=== PATIENT | female | born 1960 | race Caucasian/White ===

== ENCOUNTER 2022-06-03 12:13 | Emergency (ER) | payer MEDICARE ==
[2022-06-03 12:35] LABS: BASO # 0.1 10*3/uL (0.0-0.1); BASO % 0.4 % (0.0-1.0); EOS # 0.1 10*3/uL (0.0-0.4); EOS % 0.5 % (1.0-4.0); HEMATOCRIT 42.6 % (37.0-47.0); LYMPH # 1.7 10*3/uL (1.3-4.4); LYMPH % 15.4 % (27.0-41.0); MEAN CORPUSCULAR HGB 25.9 pg (27.0-31.0); MEAN CORPUSCULAR HGB CONC 31.9 g/dl (33.0-37.0); MEAN PLATELET VOLUME 8.5 fl (9.6-12.3); MONO # 0.5 10*3/uL (0.1-1.0); MONO % 4.4 % (3.0-9.0); NEUT # 8.8 10*3/uL (2.3-7.9); PLATELET COUNT AUTOMATED 471 10*3/uL (130-400); RED BLOOD COUNT 5.26 10*6/uL (4.10-5.10); RED CELL DISTRI WIDTH 16.2 % (0-14.5); WHITE BLOOD COUNT 11.1 10*3/uL (4.8-10.8)
[2022-06-03 12:43] LABS: BILIRUBIN Negative (Negative); BLOOD Negative (Negative); CLARITY Clear (Clear); COLOR Yellow (Yellow); GLUCOSE Negative (Negative); KETONE Negative (Negative); LEUKO ESTERASE Negative (Negative); NITRITE Negative (Negative); UROBILINOGEN 0.2 E.U./dl (0.0-1.0)
[2022-06-03 12:51] LABS: URINE AMPHETAMINES < 1000 (1000ng/ml); URINE BARBITURATES < 200 (200ng/ml); URINE BENZODIAZEPINES < 200 (200ng/ml); URINE CANNABINOIDS (THC) < 50 (50ng/ml); URINE COCAINE < 300 (300ng/ml); URINE METHADONE < 300 (300ng/ml); URINE OPIATES < 300 (300ng/ml)
[2022-06-03 12:52] LABS: BUN 11 mg/dl (7-24); CHLORIDE 110 mmol/L (98-107); CPK 70 U/L (26-192); CREATININE 0.95 mg/dL (0.55-1.02); LIPASE 123 U/L (73-393); POTASSIUM 3.2 mmol/L (3.5-5.1); SGOT/AST 9 IU/L (3-35); SGPT/ALT 11 U/L (12-78); SODIUM 137 mmol/L (136-145); TOTAL PROTEIN 8.2 gm/dL (6.4-8.2)
[2022-06-03 12:53] LABS: ALKALINE PHOSPHATASE 141 U/L (45-117); URINE PHENCYCLIDINE < 25 (25ng/ml)
[2022-06-03 12:55] LABS: ACT PARTIAL THROMBO TIME 27.5 SECONDS (20.0-32.1)
[2022-06-03 12:58] LABS: BACTERIA TRACE; RBC 0-2 rbc/hpf (0-2)
[2022-06-03 13:31] LABS: ETHYL ALCOHOL < 3.0 mg/dl (<3)
[2022-06-03 13:43] LABS: ACETAMINOPHEN (TYLENOL) < 5.0 ug/ml (10-30)
== END 2022-06-03 16:11 | disposition admitted as inpatient to this hospital (09) ==
LOC: ED 12:13
PROVIDERS: Emergency Medicine
DX: F29 Unspecified psychosis not due to a substance or known physiological condition (principal); Z20.822 Contact with and (suspected) exposure to COVID-19; F17.200 Nicotine dependence, unspecified, uncomplicated

== ENCOUNTER 2022-06-03 14:45 | Inpatient (IN) | payer MEDICARE ==
[~2022-06-03] VITALS: Ht 154.9 cm; Wt 65.3 kg
[2022-06-03 15:44] VITALS: BP 155/60
[2022-06-03 20:00] VITALS: BP 151/65
[2022-06-04 07:26] VITALS: BP 144/63
[2022-06-04 20:00] VITALS: BP 155/62
[2022-06-05 08:17] VITALS: BP 168/72
[2022-06-05 20:00] VITALS: BP 183/71
[2022-06-06 07:31] VITALS: BP 151/65
[2022-06-06 20:00] VITALS: BP 115/64
[2022-06-07 07:20] VITALS: BP 104/43
[2022-06-07 19:33] VITALS: BP 122/80
[2022-06-08 07:00] VITALS: BP 130/60
[2022-06-08 19:37] VITALS: BP 150/52
[2022-06-08 20:20] VITALS: BP 154/82
[2022-06-09 08:00] VITALS: BP 149/76
[2022-06-09 19:55] VITALS: BP 149/76
[2022-06-10 07:05] VITALS: BP 143/64
[2022-06-10 19:05] VITALS: BP 130/57
[2022-06-11 08:00] VITALS: BP 110/60
[2022-06-11 20:00] VITALS: BP 140/61
[2022-06-12 07:37] VITALS: BP 130/60
[2022-06-12 20:00] VITALS: BP 129/63
[2022-06-13 08:00] VITALS: BP 134/52
[2022-06-13] MEDS ORDERED: PERSERIS SQ (09:54)
== END 2022-06-13 10:47 | DRG 885 ==
LOC: 3N 14:45
PROVIDERS: ADMIT Psychiatry & Neurology Psychiatry; ATTEND Psychiatry & Neurology Psychiatry
DX: F23 Brief psychotic disorder (principal); E87.2 Acidosis; G31.09 Other frontotemporal neurocognitive disorder; F02.80 Dementia in other diseases classified elsewhere, unspecified severity, without behavioral disturbance, psychotic disturbance, mood disturbance, and anxiety; F29 Unspecified psychosis not due to a substance or known physiological condition; E87.6 Hypokalemia; R73.9 Hyperglycemia, unspecified; I10 Essential (primary) hypertension; D72.829 Elevated white blood cell count, unspecified; F17.200 Nicotine dependence, unspecified, uncomplicated; F22 Delusional disorders